=== PATIENT | female | born 1980 | race Caucasian/White ===

== ENCOUNTER 2017-03-15 13:45 | Emergency (ER) | payer OTHER ==
[2017-03-15 13:58] VITALS: BP 112/80; PULSE 62; RESP 16; TEMP 98.6; O2SAT 95
--- NOTE | 2017-03-15 14:07 | EDPHY ---
HPI/HX/ROS/PE/MDM Narrative: CHIEF COMPLAINT: Wound evaluation HPI: The patient is a 36-year-old female who underwent a fusion of her left wrist and seen the a go several weeks ago. She presents today because she is concerned that an area of the incision looks somewhat red and weepy. She denies fever. She denies increased pain. She is unable to follow up with her surgeon because [place]. REVIEW OF SYSTEMS: Aside from elements discussed in the HPI, a comprehensive 10-point review of systems was reviewed and is negative. PMH: History of scaphoid fracture with recent wrist surgery. SOCIAL HISTORY: Works as a traveling ICU nurse. PHYSICAL EXAM: General:Patient is alert, in no acute distress. Extremities: An incision measuring approximately 6 cm is present on the left dorsal forearm. This appears to be healing well. There is a small area, approximately 1 cm in length in the middle of the wound which may be slightly dehisced with a small amount of white exudate. This does not appear to represent purulent drainage. There is no surrounding warmth or erythema whatsoever. There is no fluctuance. Neuro: Oriented x3. Normal motor function. Normal sensory function. MDM: This patient presents for wound evaluation. I see no active signs of infection. Given the fact that she had recent surgery, I think it prudent to start her on prophylactic antibiotics with Keflex. She agrees with this plan. She will send a picture to her surgeon for confirmation. We discussed strict return precautions. General Time Seen by Provider: 03/15/17 13:50 Initial Vital Signs: Initial Vital Signs Temperature (C) 37.0 C 03/15/17 13:51 Heart Rate 62 03/15/17 13:51 Respiratory Rate 16 03/15/17 13:51 Blood Pressure 112/80 03/15/17 13:51 O2 Sat (%) 95 03/15/17 13:51 O2 Delivery Mode Room Air Allergies/Adverse Reactions: erythromycin base Allergy (Intermediate, Verified 03/15/17 13:50) [place] and vomiting sulfamethoxazole [From Bactrim] Allergy (Intermediate, Verified 03/15/17 13:50) nausea and vomiting trimethoprim [From Bactrim] Allergy (Intermediate, Verified 03/15/17 13:50) nausea and vomiting Home Medications: Medication Instructions Recorded Cephalexin [Keflex] 500 mg PO TID #21 cap 11/24/17 Nuvaring 03/15/17 Departure - Departure Disposition: Home, Routine, Self-Care Clinical Impression: Encounter for evaluation of wound Condition: Good Instructions: Cephalexin (By mouth), Care For Your Stitches (ED) Additional Instructions: Follow-up with your surgeon on Saturday. Return for fever, worsening redness, discharge, pain or other concerns. Referrals: Doctor Not,On Staff, MD [Primary Care Provider] - As per Instructions Prescriptions: Cephalexin [Keflex] 500 mg PO TID #21 cap
== END 2017-03-15 14:10 | disposition home or self-care (01) ==
LOC: CED 13:45
DX: Z48.00 Encounter for change or removal of nonsurgical wound dressing (principal)